=== PATIENT | male | born 1955 | race Caucasian/White ===

== ENCOUNTER 2020-08-05 08:00 | Outpatient (RCR) | payer MEDICARE, SELFPAY ==
[2020-07-08 08:10] VITALS: BP 125/94; PULSE 68
== END 2020-09-19 09:44 | disposition other institution (70) ==
LOC: HO.PT 08:00
PROVIDERS: Visit Provider Orthopaedic Surgery
DX: Z96.641 Presence of right artificial hip joint (principal)
CPT/HCPCS: 97110; 97112; 97161; 97530

== ENCOUNTER 2023-08-12 10:00 | Outpatient (RCR) | payer MEDICARE, SELFPAY | END 2023-08-12 15:58 | disposition home or self-care (01) | LOC: HO.PT 10:00 | PROVIDERS: PCP Internal Medicine; Visit Provider Physician Assistant Surgical | DX: Z96.642 Presence of left artificial hip joint (principal) | CPT/HCPCS: 97110; 97112; 97140; 97161; 97530 ==

== ENCOUNTER 2025-03-03 09:50 | Outpatient (AMB) | payer MEDICARE, SELFPAY ==
--- NOTE | 2025-03-03 09:53 | A.OFFVIS_ITS ---
Vital Signs 03/03/25 10:00 Height 5 ft 10 in Weight 200 lb BMI 28.7 Handedness Right Intake Visit Reasons: Plantar Wart Intake Note: Sanju is a 69 year old male who presents today as a new patient for a evaluation of his bilateral planter warts. Patent express that the one that is causing him discomfort on the left foot. He state that he noticed the warts about a year on his left foot and for the right it only has been a couple weeks. Allergies No Known Allergies Allergy (Verified 03/03/25 09:58) HPI HPI Plantar Wart: Details: 69-year-old male with past medical history of hyperlipidemia and hypothyroidism presents for initial evaluation of bilateral foot lesions. He describes it as painful, starting over the past few months. He went to see another provider who recommended or treatment. The patient has not tried any treatment so far. 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 PFSH Social History Alcohol intake: never Patient Tobacco Use Status: Never used Tobacco Current occupational status: retired Current occupation: right hand dominant Review of Systems Const All systems reviewed & are unremarkable except as noted in HPI and below Physical Exam Vital Signs: BMI result Body Mass Index 28.7 Extrem Other: *Bilateral Lower Extremity Focused Exam Vascular: DP/PT 2/4, CFT<3s to all digits, TG warm to cool, no pedal edema Derm: Diffuse annual scaling bilateral plantar heels and forefoot sulcus. Left medial hallux hyperkeratotic lesion. Deep core IPK lesions to the sub 3rd metatarsal region bilateral feet. Neuro: Protective sensation grossly intact to bilateral lower extremities MSK: 1st Metatarsal-phalangeal joint hallux range of motion 10 degrees bilateral feet. Moderate to high arch cavus feet deformity. Office Procedures AMB Debridement/Avulsion Podia Details: Procedure: Callus debridement Location: 2 lesions right foot, 2 lesions left foot (4 total) Anesthesia: N/A Description: The affected area was cleansed with an antiseptic solution. Using a sterile #15 blade, the hyperkeratotic tissue was radially debrided from the foot. All callused tissue was removed down to normal skin without causing bleeding or discomfort. The area was inspected for underlying ulceration or infection. Patient tolerated the procedure well. No complications noted. Tolerance: Patient tolerated procedure well, no immediate complications. 41416-Xaklfgituzr of Callus (2-4) Procedure code (CPT) selection complete Assessment & Plan Assessment & Plan (1) [place]: Code(s): L84 - Corns and callosities Category: Medical Plan: * Debrided 4 lesions total * Rx urea cream (2) Hallux rigidus of both feet: Code(s): M20.21 - Hallux rigidus, right foot; M20.22 - Hallux rigidus, left foot Category: Medical Plan: * Order bilateral x-rays (3) Tinea pedis: Code(s): B35.3 - Tinea pedis Category: Medical Qualifiers: Laterality: bilateral Qualified Code(s): B35.3 - Tinea pedis Plan: * Rx Clotrimazole Orders: Orders XR Foot [place] 3V Today M20.21 - Hallux rigidus, right foot, M20.22 - Hallux rigidus, left foot AMB Debridement/Avulsion Podiatry Today L84 - Corns and callosities Medications: New clotrimazole 1% (Athlete's Foot (clotrimazole)) Applied to both heels 1 appl topical BID 15 grams 5RF Athlete's foot 4 weeks B35.3 - Tinea pedis urea 40% Apply once to bottom of both feet daily 1 appl topical DAILY 28 grams 3RF Plantar corn and callus L84 - Corns and callosities, M20.21 - Hallux rigidus, right foot, M20.22 - Hallux rigidus, left foot Coding Level of Care Code New Pt Level 4 (03415) Diagnoses [place] L84 Hallux rigidus of both feet M20.21; M20.22 Tinea pedis of both feet B35.3 Laterality: bilateral CPT Codes Skin Debridement - CPT: 78649-Amzontgunmh of Callus (2-4) ([id number]) Time Spent (min) 35
[2025-03-03 10:00] VITALS: BMI 28.7
--- OUTSIDE RECORDS SUMMARY | 2025-03-03 11:04 | XMS_ITS | Continuity of Care Document ---
Author Organization [place] - [facility], [employer] [facility] [employer] UROLOGY Address [address] [facility] [address] [place] [address] Care Team Providers Care Biomedical Instrument Technician Name Role Phone EULALIO ANN Referring Provider IGOR GOVEA OTHER REED GILLETTE Air Quality Manager Assessment No assessment recorded. Plan of Treatment Reminders Order Date Submit Date Provider Last Modified By Organization Details Last Modified Time Details Appointments None recorded . Lab PSA, serum or plasma 025 01/20/20 [facility], [address], [place], [address], 5 10:56:58 Referral None recorded . Procedures None recorded . Surgeries None recorded . Imaging None recorded . Medication Orders None recorded . Patient TargetsNo targets recorded. Patient Instructions Encounter Date Encounter Id Patient Instructions Last Modified By Organization Details Last Modified Time 01/19/2025 [id number] prostate cancer: care instructions [email or web address] Not available 01/19/2025 11:58:10 Reason for Referral None Reported. Results Created Date Observation Date Name Description Value Unit Range Abnormal Flag Note LastModifiedBy Organization Detail LastModifiedTime 01/20/2001/19/2025 PROST ATE SPECI FIC ANTIG EN prostate specific antigen 0.10 NG/mL <4.40 The measu remen t of total PSA in conju nctio n with digit al recta l exami natio n (DERRICK) is used as an aid in the detec tion of prost ate cance r in men aged 50 years and older . Prost ate biops y is requi red for diagn osis of prost ate cance r Tumor marke r resul ts can vary due to diffe rence s in assay metho ds and reage nt speci ficit y. It is recom samson d that the clini adrienne reque st paral lel measu remen ts for monit oring of patie nts if resul ts are teste d at [facility] sites . Not Available [facility] [address], [place], [address] 01/19/2025 11:07:05 Result Notes None recorded. Problems No Known Problems Procedures Surgical History Date Name Laterality Status Provider Name and Address Organization Details Recorded Time 4 TOTAL HIP ARTHROPLASTY, ANTERIOR APPROACH (SURG) completed SANTOSH HIDALGO [address] [place], [phone], [facility] 06/10/2023 14:58:40 1 Generic Procedure Template completed Kristie Shankar NP [address] [place] [address], [phone], [facility] 03/24/2021 08:03:30 1 Generic Procedure Template completed Segundo Tavares [facility] 06/06/2020 09:28:45 0 Carpal tunnel surgery completed Sara Strange [facility] 11/20/2017 15:05:39 3 knee surgery completed Sara Strange [facility] 11/20/2017 15:05:22 Imaging Results None recorded. Procedure Notes None recorded. Medical Equipment None Reported. Allergies No known drug allergies Medications Name Sig Start Date Stop Date Status Note LastModified by Organization Details LastModified Time Colace 100 mg capsule Take 1 capsule twice a day by oral route as needed. 2023 active Not Available Not Available Not Avai lable acetaminoph en 325 mg tablet Take 3 tablets every 8 hours by oral route as needed. 2023 active Not Available Not Available Not Avai lable Protonix 40 mg tablet,asmita yed release Take 1 tablet every day by oral route as needed. 05/01 completed Not Available Not Available Not Available hydrocodone 5 mg-acetamin ophen 325 mg tablet 1 tablet as needed for postop pain Orally every 6 hrs (partial fill upon patient request) 05/01 completed Not Available Not Available Not Available meloxicam 15 mg tablet Take 1 tablet every day by oral route as needed for 30 days. 2023 active Not Available Not Available Not Avai lable Pyridium 200 mg tablet Take 1 tablet 3 times a day by oral route for 3 days. 05/01 completed Not Available Not Available Not Available amoxicillin 500 mg tablet take 4 tabs one hour prior to dental procedure 2023 active Not Available Not Available Not Avai lable Dulcolax (bisacodyl) 10 mg rectal suppository 1 supposito ry Rectal Once Take at 8 pm the night prior to surgery * 05/01 completed Not Available Not Available Not Available levothyroxi ne 100 mcg tablet 1 tablet on an empty stomach in the morning Orally Once a day active Not Available Not Available No t Available famotidine 20 mg tablet Take 1 tablet twice a day by oral route for 20 days. 2023 active Not Available Not Available Not Avai lable simvastatin 20 mg tablet Take 1 tablet every day by oral route. active Not Available Not Available No t Available aspirin 81 mg chewable tablet Chew 1 tablet twice a day by oral route as directed for 30 days. 2023 active Not Available Not Available Not Avai lable Lovenox 40 mg/0.4 mL subcutaneou s syringe as directed Subcutane ous once daily 05/01 completed Not Available Not Available Not Available oxycodone 5 mg tablet Take 1-2 tabs every 4 hours as needed for moderate to severe breakthro ugh pain 2023 active Not Available Not Available Not Avai lable Bactrim DS 800 mg-160 mg tablet one tab orally twice a day 2017 active Not Available Not Available Not Avai lable cyclobenzap rine 5 mg tablet Take 1 tablet 3 times a day by oral route as needed. 2023 active Not Available Not Available Not Avai lable Cialis 20 mg tablet 1/2 tab ( three times a week-begi n after catheter removal) Orally 05/01 completed Not Available Not Available Not Available Golytely 236 gram-22.74 gram-6.74 gram-5.86 gram oral solution Bowel prep for colonosco py. Follow instructi ons provided by GI MD office only. 2023 active Not Available Not Available Not Avai labshannon Eliquis 2.5 mg tablet Take 1 tablet twice a day by oral route for 30 days. 05/01 completed Not Available Not Available Not Available Vitals None Recorded Social History Question Answer Notes LastModified by Crambuizat [employer]DoneThis Details LastModified Time Tobacco Smoking Status Never Smoker Sara Strange [facility] 11/20/2017 15:04:19 Which Illicit Or Recreational Drugs Have You Used? Quit 25 Years Ago, No Injectables [email or web address] Information not available 11/20/2017 What Was The Date Of Your Most Recent Tobacco Screening? 11/20/2017 Information not available 10/22/2018 Sex: Unknown Functional Status Question Answer Note LastModified by Organizat [employer]DoneThis Details LastModified Time What is your level of alcohol consumption? None Quit 25 years ago [email or web address] Information not available 11/20/2017 Mental Status None recorded. Family History Relationship Description Onset Age of this Age Resolved Age Notes LastModified by Organization Details LastModified Time Father Malignant neoplasm of prostate [email or web address] Not available 2017 15:03:09 Father Malignant neoplasm of esophagus [email or web address] Not available 2017 15:03:19 Father Hypertensive disorder Not available 2017 15:03:26 Medical History Condition Response prostate cancer Y Past Encounters Encounter ID Performer Location Encounter Start Date Encounter Closed Date Diagnosis/Indication Diagnosis SNOMED-CT Code Diagnosis ICD10 Code Diagnosis IMO Codes Diagnosis Note [id number] NICOLE PALAFOX MD [facility] [facility] [address] [place] [address] 01/19/2025 11:40:22 01/19/2025 14:47:09 Malignant neoplasm of prostate [id number] [id number] The patient is a 69-year-ol d male with a history of prostate cancer, status post robotic-as sisted laparoscop ic radical prostatect magalys with bilateral pelvic lymph node dissection and nerve-spar ing technique performed on 08/14/2017 . Final surgical pathology revealed Central 3+4=7 (Grade Group 2) prostatic adenocarci noma, pathologic stage [id number], with negative surgical margins and no extracapsu lar extension. The patient presents today via Telehealth for evaluation of post-prost atectomy biochemica l recurrence , urinary stress incontinen ce and erectile dysfunctio n. His PSA on 06/26/2024 was 0.13 ng/mL, which represents a slight increase from his previously undetectab le level of <0.1 ng/mL noted on 08/18/2018 . His most recent PSA 01-19-2025 was 0.10 ng/mL. Wll trend PSA closely for biochemica l recurrence . Repeat PSA in 3 months. If it continues to rise, consider imaging (PSMA PET) Discussed with the patient biochemica l recurrence of prostate cancer is defined as a PSA > 0.2 ng/mL. Currently, he does not have evidence of BCR. We discussed another short interval PSA in three months with a telehealth visit. If that continues to trend appropriat gerald, will plan for six-month interval PSA. Plan:- Telehealth visit with repeat PSA in 3 months-- Continue follow up with Medical oncology Genuine res incontinence [id number] N39.3 [id number] He reports persistent incontinen ce requiring the use of 2 pads per day, with leakage triggered by coughing, sneezing, or certain movements. He denies urgency, frequency, dysuria, hematuria, or nocturia. Erectile d ysfunction following radical prostatectomy [id number] 47841 N52.31 [id number] Erectile dysfunctio n has persisted since surgery and is not responsive to oral PDE5 inhibitors . Health Concerns Section Related Observation LastModified by Organization Detai ls LastModified Time None Recorded Concern Status LastModified by Organization Details LastModified Time None Recorded Payers Encounter Date Sequence Insurance Name Policy Number Policy Sawant Covered Member ID Sawant Member ID Guarantor Name 01/19/2025 1 [place]UE (MEDICARE REPLACEMENT PPO) [id number] Sanju Hodges [id number] Sanju Hodges Notes Date Note Type Note Provider Name and Address Organization Details Recorded Time 01/19/2025 text/html The patient is a 69-year-old male with a history of prostate cancer, status post robotic-assisted laparoscopic radical prostatectomy with bilateral pelvic lymph node dissection and nerve-sparing technique performed on 08/14/2017. Final surgical pathology revealed Anuj 3+4=7 (Grade Group 2) prostatic adenocarcinoma, pathologic stage [id number], with negative surgical margins and no extracapsular extension.The patient presents today via Telehealth for evaluation of post-prostatectomy biochemical recurrence, urinary stress incontinence and erectile dysfunction. He reports persistent incontinence requiring the use of 2 pads per day, with leakage triggered by coughing, sneezing, or certain movements. He denies urgency, frequency, dysuria, hematuria, or nocturia. Erectile dysfunction has persisted since surgery and is not responsive to oral PDE5 inhibitors.His most recent PSA on 06/26/2024 was 0.13 ng/mL, which represents a slight increase from his previously undetectable level of <0.1 ng/mL noted on 08/18/2018. 01/19/2025: Patient returns for follow up. Hx of RALP 08/14/2017. Final surgical pathology revealed Anuj 3+4=7 (Grade Group 2) prostatic adenocarcinoma, pathologic stage [id number], with negative surgical margins and no extracapsular extension. His PSA on 06/26/2024 was 0.13 ng/mL, which represents a slight increase from his previously undetectable level of <0.1 ng/mL noted on 08/18/2018. His most recent PSA 01-19-2025 returns at 0.1 ng/mL. Patient reports incontinence and erectile function are at baseline and he does not need them further addressed at this time. NICOLE PALAFOX MD [address] [place] [address], [phone], [facility] 01/24/2025 08:29:54
--- OUTSIDE RECORDS SUMMARY | 2025-03-03 11:04 | XMS_ITS | Clinical Summary ---
Author Organization [facility] Address [address] [place] [address] Phone Care Team Providers Care Television Writer Name Role Phone Harris Riggins MD Primary Care Provider [phone] Tiffany Melara MD Unavailable Hao Lugo MD Unavailable Allergies No known active allergies Medications simvastatin (ZOCOR) 20 MG tablet Take 20 mg by mouth nightly. Active levothyroxine (SYNTHROID, LEVOTHROID) 100 MCG tablet Take 100 mcg by mouth every morning. Active therapeutic multivitamin tablet Take 1 tablet by mouth daily. Active Active Problems Problem Noted Date Diagnosed Date Status post total hip replacement, right 025 Hypothyroidism 01/19/2025 Hyperlipidemia 01/19/2025 Prostate cancer 04/24/2017 Encounters Date Type Department Care Team Description 01/19/2025 11:00 AM EDT Office Visit [facility] [place] [id number] [facility], [address] [place] [address] Tiffany Melara MD Prostate cancer (Primary Dx) from Last 3 Months Family History Medical History Relation Comments Cancer Father Crohn's disease Father Prostate cancer Father Hypertension Paternal Grandmother Relation Status Comments Father prostate and eso phageal Paternal Grandmother Social History Tobacco Use Types Packs/Day Years Used Date Smoking Tobacco: Never Smokeless Tobacco: Never Alcohol Use Standard Drinks/Week Comments No 0 (1 standard drink = 0.6 oz pure alcohol) quit heavy drinking 25 years pratima - no withdrawal problems Child or Family Care Answer Date Record ed Do you have problems with on e of the following making it difficult for you to work, study, or receive health care? No 06/19/2024 Education Answer Date Recorded Are you interested in more education? Not on lencho e 07/27/2022 Are you concerned about learning? Not on file 07/27/2022 No 07/27/2022 No 07/27/2022 Food Answer Date Recorded Within the past 6 months we worried whether our food would run out before we got money to buy more. Never True 06/19/2024 Within the past 6 months the food we bought just didn't last and we didn't have enough money to get more. Never True Residential Stability Answer Date Recor ded What is your housing situation today? I have carmen sing 06/19/2024 How many times have you move d in the past 12 months? Zero (I did not move) 06/19/2024 Paying for Meds Answer Date Recorded Do you have trouble paying for medicines? No 06/19/2024 Paying Utility Bills Answer Date Record ed Do you have trouble paying your heating or elect ricity bill? No 06/19/2024 Transportation Answer Date Recorded Has the lack of transportati on kept you from medical appointments or from getting medications? No 06/19/2024 Digital Access Answer Date Recorded No 08/25/2022 No 08/25/2022 Reliable internet access at home? Not on file 08/25/2022 Device with a working camera? Not on file Intimate Partner Violence Answer Date R ecorded Are you denied basic needs s uch as food, clothing, or medical care? No 06/21/2023 In the past 12 months have y ou been in a relationship with a person who hurts, threatens, or tries to control you? No 06/21/2023 Are you denied basic needs s uch as food, clothing, or medical care? No 06/21/2023 In the past 12 months have y ou been in a relationship with a person who hurts, threatens, or tries to control you? No 06/21/2023 Sex and Gender Information Value Date Recorded Sex Assigned at Male 06/21/2023 6:05 PM EDT Legal Sex Male 8:50 AM EST Gender Identity Male 06/21/2023 6:05 PM EDT Sexual Orientation Straight 06/09/2024 4: 52 PM EDT Last Filed Vital Signs Vital Sign Reading Time Taken Comments Blood Pressure 136/68 01/19/2025 9:55 AM EDT Pulse 48 01/19/2025 9:55 AM EDT Temperature 36.7 C (98.1 F) 01/19/2025 9:55 AM EDT Respiratory Rate 16 01/19/2025 9:55 AM EDT Oxygen Saturation 100% 01/19/2025 9:55 AM EDT Inhaled Oxygen Concentration - - Weight 82.5 kg (181 lb 14.1 oz) 01/19/2025 9:55 AM EDT Height 177 cm (5' 9.69 ) 01/19/2025 9:55 AM EDT Body Mass Index 26.33 01/19/2025 9:55 AM EDT Plan of Treatment Upcoming Encounters Date Type Department Care Team (Late st Contact Info) Description 04/20/2025 10:15 AM EST Blood Draw [facility] [place] Phlebotomy Services [address] [facility] [place] [address] Tiffany Melara MD [address] [place] [address] [email or web address] 04/20/2025 11:00 AM EST Office Visit [facility] [place] [address] [facility] [place] [address] Tiffany Melara MD [address] [place] [address] [email or web address] Ding PA-C [address] [place] [address] [email or web address] Health Maintenance Due Date Last Done Comments LIPID PANEL 1953 TSH LEVEL 1953 DEPRESSION SCREENING 1965 HEPATITIS C SCREENING 1971 COLOGUARD 1998 COLONOSCOPY 1998 COLORECTAL CANCER SCREENING 1998 FIT TEST 1998 FOBT 1998 SIGMOIDOSCOPY 1998 VIRTUAL COLONOSCOPY 1998 Adult Td,Tdap Booster 12/21/2023 12/20/2013, 011 COVID-19 VACCINE ( season) 2025 12/16/2024, 06/04/2024, 12/04/2023, Additional history exists ZOSTER VACCINES Completed 12/27/2020, 09/23/2020 RSV VACCINE Completed 11/22/2022 PNEUMOCOCCAL VACCINES (50+ years) Completed 06/04/2024 SMOKING STATUS SCREENING (Once After 26 Yrs) Completed 06/24/2024 INFLUENZA VACCINE Completed 12/16/2024, , 11/22/2022, Additional history exists HEPATITIS A VACCINES Aged Out No long er eligible based on patient's age to complete this topic HIB VACCINES Aged Out No longer eligi ble based on patient's age to complete this topic MENINGOCOCCAL VACCINES (ACWY) Aged Out No longer eligible based on patient's age to complete this topic MENINGOCOCCAL VACCINES (B) Aged Out N o longer eligible based on patient's age to complete this topic Medical Devices Not on file Procedures Procedure Name Priority Date/Time Associated Diagnosis Comments PSA DIAGNOSTIC (MONITORING) Routine 01/19/2025 9:57 AM EDT Prostate cancer from Last 3 Months Results * PSA diagnostic (monitoring) (01/19/2025 9:57 AM EDT) PSA (TOTAL AND SCREENING) 0.10 <4.40 ng/ml 01/19/2025 11:06 AM EDT [facility] Comment: The measurement of total PSA in conjunction with digital rectal examination (DERRICK) is used as an aid in the detection of prostate cancer in men aged 50 years and older. Prostate biopsy is required for diagnosis of prostate cancer Tumor marker results can vary due to differences in assay methods and reagent specificity. It is recommended that the clinician request parallel measurements for monitoring of patients if results are tested at multiple sites. 01/19/2025 9:57 AM EDT 01/19/2025 10:10 AM EDT us Sekou Almaraz PA-C LAB BLOOD BKR ORDERABLES Malissa finch Result Performing Organization Address City/State/[facility] Co de Phone Number [facility] [address] [place] [phone] from Last 3 Months Insurance [employer]AC[place] [employer] BLUE REPLACEMENT [facility] [place] MED[place]PO BLUE REPLACEMENT [place] BLUE REPLACEMENT Advance Directives For more information, please contact: [phone] (9AM - 5PM [facility], Saturday-Saturday) Documents on File Type Date Recorded Patient Vessel Manager Expl anation Healthcare Proxy 06/29/2024 10:55 AM Care Teams Television Writer Relationship Specialty Start Date End Date Harris Riggins MD [address] [place] [phone] PCP - General Internal Medicine 06/09/24 Tiffany Melara MD [address] [place] [phone] [email or web address] Primary Oncologist Medical Oncology 06/09/24 Hao Lugo MD [address] [place] [phone] Urology 09/21/24 Additional Source Comments The information contained in this document represents components of the legal health record. It is not the complete legal health record.[facility]
--- OUTSIDE RECORDS SUMMARY | 2025-03-03 11:04 | XMS_ITS | Data Portability ---
Author Organization [facility], [facility] Address [address] [place] [address] Care Team Providers Care School Leader Name Role Phone HARRIS RIGGINS Referring Provider IGOR AMIN OTHER REED GILLETTE Clerk To Justice [phone] Assessment No assessment recorded. Plan of Treatment Reminders Order Date Submit Date Provider Last Modified By Organization Details Last Modified Time Details Appointments None recorded. Lab PSA, serum or plasma 2024 025 [email or web address] [facility], [address], [address], [place], [address], 5 10:56:58 PSA, serum or plasma 2024 025 [email or web address] [facility], [address], [address], [place], [address], 5 11:49:26 CBC w/ auto diff 2023 024 SG [facility], [address], [address], [place], [address], 4 02:55:10 HbA1c (hemoglobin A1c), blood 2023 024 SG [facility], [address], [place], [address], 4 07:44:40 methicillin resistant staphylococ cus aureus, culture, nasal 2023 024 [facility], [address], [address], [place], [address], 4 09:52:20 type + screen, blood 2023 024 [email or web address], [address], [address], [place], [address], 4 09:52:19 CMP, serum or plasma 2023 024 [facility], [address], [address], [place], [address], 4 05:13:12 Referral physical therapist referral 2023 024 SG Not available 4 12:59:02 Procedures None recorded. Surgeries total hip arthroplast y, anterior approach (SURG) 2023 024 [email or web address] 0 [facility], [address] [place] [address] 9, [place], [address], 4 14:37:[address], hip, w/o contrast - JOSE Protocol 2023 024 [email or web address] Not available 4 11:16:33 Medication Orders amoxicillin 500 mg tablet 2023 024 [id number], [address] [place], [address], 4 13:15:18 Patient TargetsNo targets recorded. Patient Instructions Encounter Date Encounter Id Patient Instructions Last Modified By Organization Details Last Modified Time 09/01/2024 [id number] prostate cancer: care instructions [email or web address] Not available 09/06/2024 19:05:03 I conducted the visit using two-way, real-time telehealth audio conferencing. Visit was conducted via telehealth: Modality: Telephone conversation audio only Provider location: Clinic Patient location: Home Total visit time of 33 minutes inclusive of time spent on same-day chart review/preparatio n, post-visit care coordination, and direct patient counseling on the above listed issues. 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 Referring Physician: Anitha Fernandez, Orthopedic Surgery, Encounter Date: 06/26/2023 Results Created Date Observation Date Name Description Value Unit Range Abnormal Flag Note LastModifiedBy Organization Detail LastModifiedTime 05/03/1905/04/2023 CBC (DIFF /PLT) (REFL ) white blood cell count 7.5 thous and/u L 3.8-10 .8 normal Not Available [facility] [address], [address], 05/04/2023 02:55:10 05/03/19 24 05/04/2023 CBC (DIFF /PLT) (REFL ) red blood cell count 4.13 danette on/uL 4.20-5 .80 low Not Available [facility] [place] [facility] [address], [address], 05/04/2023 02:55:10 05/03/19 24 05/04/2023 CBC (DIFF /PLT) (REFL ) hemoglobin 12.8 g/dL 13.2-1 7.1 low Not Available [facility] [place] [facility] [address], [address], 05/04/2023 02:55:10 05/03/19 24 05/04/2023 CBC (DIFF /PLT) (REFL ) hematocrit 39.2 % 38.5-5 0.0 normal Not Available [facility] [address], [address], 05/04/2023 02:55:10 05/03/19 24 05/04/2023 CBC (DIFF /PLT) (REFL ) MCV 94.9 fL 80.0-1 00.0 normal Not Available [facility] [address], [place], [address], 05/04/2023 02:55:10 05/03/19 24 05/04/2023 CBC (DIFF /PLT) (REFL ) MCH 31.0 pg 27.0-3 3.0 normal Not Available [facility] [address], [place], [address], 05/04/2023 02:55:10 05/03/19 24 05/04/2023 CBC (DIFF /PLT) (REFL ) MCHC 32.7 g/dL 32.0-3 6.0 normal Not Available [facility] [address], [place], [address], 05/04/2023 02:55:10 05/03/19 24 05/04/2023 CBC (DIFF /PLT) (REFL ) RDW 12.5 % 11.0-1 5.0 normal Not Available [facility] [address], [place], [address], 05/04/2023 02:55:10 05/03/19 24 05/04/2023 CBC (DIFF /PLT) (REFL ) platelet count 198 thous and/u L 140-40 0 normal Not Available [address], [place], [address], 05/04/2023 02:55:10 05/03/19 24 05/04/2023 CBC (DIFF /PLT) (REFL ) MPV 12.4 fL 7.5-12 .5 normal Not Available [facility] [address], [place], [address], 05/04/2023 02:55:10 05/03/19 24 05/04/2023 CBC (DIFF /PLT) (REFL ) absolute neutrophils 4275 cells /uL 1500-7 800 normal Not Available [facility] [address], [place], [address], 05/04/2023 02:55:10 05/03/19 24 05/04/2023 CBC (DIFF /PLT) (REFL ) absolute lymphocytes 2273 cells /uL 850-39 00 normal Not Available [facility] [address], [place], [address], 05/04/2023 02:55:10 05/03/19 24 05/04/2023 CBC (DIFF /PLT) (REFL ) absolute monocytes 728 cells /uL 200-95 0 normal Not Available [facility]- [address], [place], [address], 05/04/2023 02:55:10 05/03/19 24 05/04/2023 CBC (DIFF /PLT) (REFL ) absolute eosinophils 173 cells /uL 15-500 normal Not Available [facility]- [address], [place], [address], 05/04/2023 02:55:10 05/03/19 24 05/04/2023 CBC (DIFF /PLT) (REFL ) absolute basophils 53 cells /uL 0-200 normal Not Available [facility] [address], [address], 05/04/2023 02:55:10 05/03/19 24 05/04/2023 CBC (DIFF /PLT) (REFL ) neutrophils 57 % normal Not Available [facility], [address], 05/04/2023 02:55:10 05/03/19 24 05/04/2023 CBC (DIFF /PLT) (REFL ) lymphocytes 30.3 % normal Not Available [facility] [place] [facility] [address], [place], [address], 05/04/2023 02:55:10 05/03/19 24 05/04/2023 CBC (DIFF /PLT) (REFL ) monocytes 9.7 % normal Not Available [facility] [place] [facility] [address], [place], [address], 05/04/2023 02:55:10 05/03/19 24 05/04/2023 CBC (DIFF /PLT) (REFL ) eosinophils 2.3 % normal Not Available [facility] [address], [place], [address], 05/04/2023 02:55:10 05/03/19 24 05/04/2023 CBC (DIFF /PLT) (REFL ) basophils 0.7 % normal Not Available [facility] [place] [facility] [address], [place], [address], 05/04/2023 02:55:10 05/03/19 24 05/04/2023 COMP META PNL glucose 87 mg/dL 65-139 normal Non-f astin g refer ence inter racheal Not Available [facility] [address], [place], [address], 05/04/2023 05:13:12 05/03/19 24 05/04/2023 COMP META PNL urea nitrogen (BUN) 21 mg/dL 7-25 normal Not Available [facility] [place] [facility] [address], [place], [address], 05/04/2023 05:13:12 05/03/19 24 05/04/2023 COMP META PNL creatinine 1.02 mg/dL 0.70-1 .28 normal Not Available [facility] [address], [place], [address], 05/04/2023 05:13:12 05/03/19 24 05/04/2023 COMP META PNL eGFR 79 mL/mi n/1.7 3m2 > or = 60 normal Not Available [facility] [address], [place], [address], 05/04/2023 05:13:12 05/03/19 24 05/04/2023 COMP META PNL BUN/creatini ne ratio SEE NOTE: (calc ) 6-22 normal Not Repor audra: BUN and Creat inine are withi n refer ence range . Not Available [facility] [address], [place], [address], 05/04/2023 05:13:12 05/03/19 24 05/04/2023 COMP META PNL sodium 140 mmol/ L 135-14 6 normal Not Available [facility] [address], [place], [address], 05/04/2023 05:13:12 05/03/19 24 05/04/2023 COMP META PNL potassium 4.3 mmol/ L 3.5-5. 3 normal Not Available [facility] [address], [place], [address], 05/04/2023 05:13:12 05/03/19 24 05/04/2023 COMP META PNL chloride 106 mmol/ L 98-110 normal Not Available [facility] [address], [place], [address], 05/04/2023 05:13:12 05/03/19 24 05/04/2023 COMP META PNL carbon dioxide 28 mmol/ L 20-32 normal Not Available [facility] [address], [place], [address], 05/04/2023 05:13:12 05/03/19 24 05/04/2023 COMP META PNL calcium 9.3 mg/dL 8.6-10 .3 normal Not Available [facility] [place] [facility] [address], [place], [address], 05/04/2023 05:13:12 05/03/19 24 05/04/2023 COMP META PNL protein, total 6.4 g/dL 6.1-8. 1 normal Not Available [facility] [place] [facility] [address], [place], [address], 05/04/2023 05:13:12 05/03/19 24 05/04/2023 COMP META PNL albumin 4.4 g/dL 3.6-5. 1 normal Not Available [facility] [address], [place], [address], 05/04/2023 05:13:12 05/03/19 24 05/04/2023 COMP META PNL globulin 2.0 g/dL_ (calc ) 1.9-3. 7 normal Not Available [facility] [address], [place], [address], 05/04/2023 05:13:12 05/03/19 24 05/04/2023 COMP META PNL albumin/glob ulin ratio 2.2 (calc ) 1.0-2. 5 normal Not Available [facility] [address], [place], [address], 05/04/2023 05:13:12 05/03/19 24 05/04/2023 COMP META PNL bilirubin, total 1.0 mg/dL 0.2-1. 2 normal Not Available [facility] [address], [place], [address], 05/04/2023 05:13:12 05/03/19 24 05/04/2023 COMP META PNL alkaline phosphatase 46 U/L 35-144 normal Not Available [facility] [place] [facility] [address], [place], [address], 05/04/2023 05:13:12 05/03/19 24 05/04/2023 COMP META PNL AST 22 U/L 10-35 normal Not Available [facility] [place] [facility] [address], [place], [address], 05/04/2023 05:13:12 05/03/19 24 05/04/2023 COMP META PNL ALT 25 U/L 9-46 normal Not Available [facility] [place] [facility] [address], [place], [address], 05/04/2023 05:13:12 05/03/19 24 05/04/2023 HEMOG LOBIN A1C hemoglobin A1C 5.4 %_of_ total _HGB <5.7 normal For the purpo se of screalbert adeng for the prese nce of diabe ashley: <5.7% Consi stent with the absen ce of diabe ashley 5.7-6 .4% Consi stent with incre ased risk for diabe ashley (pred iabet es) > or =6.5% Consi stent with diabe ashley This assay resul t is consi stent with a decre ased risk of diabe ashley. Curre ntly, no conse nsus exist s ector boyd use of hemog lobin A1c for diagn osis of diabe ashley in child magdi. Accor ding to Ameri can Diabe ashley Assoc iatio n (ADA) guide lines , hemog lobin A1c <7.0% repre sents optim al contr ol in non-p regna nt diabe tic patie nts. Diffe rent metri cs may apply to speci fic patie nt popul ation s. Stand ards of Medic al Care in Diabe ashley(A DA). HbA1c perfo rmed on Abbot t platf orm. Not Available [facility] [place] [facility] [address], [place], [address], 05/04/2023 07:44:39 05/03/19 24 05/05/2023 MRSA CULTU RE SCREE N source: NASAL Not Available [facility] [place] [facility] [address], [place], [address], 05/05/2023 08:54:53 05/03/19 24 05/05/2023 MRSA CULTU RE SCREE N status: FINAL Not Available [facility] [place] [facility] [address], [place], [address], 05/05/2023 08:54:53 05/03/19 24 05/05/2023 MRSA CULTU RE SCREE N culture: No methic illin resist ant Staphy lococc us aureus (MRSA) isolat ed. Not Available [facility] [place] [facility] [address], [place], [address], 05/05/2023 08:54:53 05/23/19 24 05/23/2023 TYPE AND SCREE N BBK report Run: 05/23 1412 Speci men Inqui ry ----- ----- ----- ----- ----- ----- ----- ----- ----- ----- ----- ----- ----- ----- ----- ---- Name: Demetrio Gtz Age/S ex: 68/M Locat ion: PAT.E M Acct: [id number] Unit: [id number] Statu s: PRE REF Room/ Bed: Re05/23 Disch : Att Dr: Rodger domingo MD ----- ----- ----- ----- ----- ----- ----- ----- ----- ----- ----- ----- ----- ----- ----- ---- Blood Type CHRISSY NG Ab Elizabeth n (Gel) CHRISSY NG ----- ----- ----- ----- ----- ----- ----- ----- ----- ----- ----- ----- ----- ----- ----- ---- END OF REPOR T Not Available [facility] [address] [facility] [address], [place], [address] 05/23/2023 14:12:28 05/23/19 24 05/23/2023 MARIA DEL CARMEN Fraser ABO/R H TYPE BB report Run: 05/23 1414 Speci brandi rodriguez ----- ----- ----- ----- ----- ----- ----- ----- ----- ----- ----- ----- ----- ----- ----- ---- Name: Kenan r,Demetrio Domingo Age/S ex: 68/M Locat ion: AIDAN Gonzalez Acct: [id number] Unit: [id number] Statu s: PRE REF Room/ Bed: Re05/23 Disch : [place] Dr: Rodger domingo MD ----- ----- ----- ----- ----- ----- ----- ----- ----- ----- ----- ----- ----- ----- ----- ---- CHELSIE COMBS PAT ----- ----- ----- ----- ----- ----- ----- ----- ----- ----- ----- ----- ----- ----- ----- ---- END OF REPOR T Not Available [facility] [address], [place], [address] 05/23/2023 14:14:30 05/23/19 24 05/23/2023 COMPL ETE BLOOD COUNT AUTO DIFF white blood count 6.5 X10_3 /uL 4.5-11 .0 normal Not Available [facility] [address], [place], [address] 05/23/2023 14:15:21 05/23/19 24 05/23/2023 COMPL ETE BLOOD COUNT AUTO DIFF red blood count 4.31 X10_6 /uL 4.00-5 .50 normal Not Available [facility] [address], [place], [address] 05/23/2023 14:15:21 05/23/19 24 05/23/2023 COMPL ETE BLOOD COUNT AUTO DIFF hemoglobin 13.4 g/dL 12.0-1 7.0 normal Not Available [facility] [address], [place], [address] 05/23/2023 14:15:21 05/23/19 24 05/23/2023 COMPL ETE BLOOD COUNT AUTO DIFF hematocrit 41.6 % 35.0-5 0.0 normal Not Available [facility] [address], [place], [address] 05/23/2023 14:15:21 05/23/19 24 05/23/2023 COMPL ETE BLOOD COUNT AUTO DIFF mean corpuscular volume 96.5 fL 80.0-1 00.0 normal Not Available [facility] [address], [place], [address] 05/23/2023 14:15:21 05/23/19 24 05/23/2023 COMPL ETE BLOOD COUNT AUTO DIFF mean corpuscular hemoglobin 31.1 pg 27.0-3 4.0 normal Not Available [facility] [address], [place], [address] 05/23/2023 14:15:21 05/23/19 24 05/23/2023 COMPL ETE BLOOD COUNT AUTO DIFF mean corpuscular HGB conc 32.2 g/dL 31.0-3 6.0 normal Not Available [facility] [address] [address], [place], [address] 05/23/2023 14:15:21 05/23/19 24 05/23/2023 COMPL ETE BLOOD COUNT AUTO DIFF red cell distribution width 13.7 % 11.5-1 5.0 normal Not Available [facility] [address] [address], [place], [address] 05/23/2023 14:15:21 05/23/19 24 05/23/2023 COMPL ETE BLOOD COUNT AUTO DIFF platelet count 220 X10_3 /uL 150-40 0 normal Not Available [facility] [address] [address], [place], [address] 05/23/2023 14:15:21 05/23/19 24 05/23/2023 COMPL ETE BLOOD COUNT AUTO DIFF immature granulocytes % (auto) 0.3 % Not Available [facility] [address] [address], [place], [address] 05/23/2023 14:15:21 05/23/19 24 05/23/2023 COMPL ETE BLOOD COUNT AUTO DIFF neutrophils % (auto) 41.3 % Not Available [facility] [address] [address], [place], [address] 05/23/2023 14:15:21 05/23/19 24 05/23/2023 COMPL ETE BLOOD COUNT AUTO DIFF lymphocytes % (auto) 40.6 % Not Available [facility] [address] [address], [place], [address] 05/23/2023 14:15:21 05/23/19 24 05/23/2023 COMPL ETE BLOOD COUNT AUTO DIFF monocytes % (auto) 12.1 % Not Available [facility] [address] [address], [place], [address] 05/23/2023 14:15:21 05/23/19 24 05/23/2023 COMPL ETE BLOOD COUNT AUTO DIFF eosinophils % (auto) 4.3 % Not Available [facility] [address] [address], [place], [address] 05/23/2023 14:15:21 05/23/19 24 05/23/2023 COMPL ETE BLOOD COUNT AUTO DIFF basophils % (auto) 1.4 % Not Available [facility] [address] [address], [place], [address] 05/23/2023 14:15:21 05/23/19 24 05/23/2023 COMPL ETE BLOOD COUNT AUTO DIFF immature granulocytes # (auto) 0.02 X10_3 /uL 0.00-0 .09 normal Not Available [facility] [address] [address], [place], [address] 05/23/2023 14:15:21 05/23/19 24 05/23/2023 COMPL ETE BLOOD COUNT AUTO DIFF neutrophils # (auto) 2.7 X10_3 /uL 1.5-7. 8 normal Not Available [facility] [address] [address], [place], [address] 05/23/2023 14:15:21 05/23/19 24 05/23/2023 COMPL ETE BLOOD COUNT AUTO DIFF lymphocytes # (auto) 2.6 X10_3 /uL 1.0-4. 8 normal Not Available [facility] [address] [address], [place], [address] 05/23/2023 14:15:21 05/23/19 24 05/23/2023 COMPL ETE BLOOD COUNT AUTO DIFF monocytes # (auto) 0.8 X10_3 /uL 0.0-0. 8 normal Not Available [facility] [address] [address], [place], [address] 05/23/2023 14:15:21 05/23/19 24 05/23/2023 COMPL ETE BLOOD COUNT AUTO DIFF eosinophils # (auto) 0.3 X10_3 /uL 0.0-0. 5 normal Not Available [facility] [address] [facility] [address], [place], [address] 05/23/2023 14:15:21 05/23/19 24 05/23/2023 COMPL ETE BLOOD COUNT AUTO DIFF basophils # (auto) 0.1 X10_3 /uL 0.0-0. 2 normal Not Available [facility] [address] [address], [place], [address] 05/23/2023 14:15:21 05/23/19 24 05/23/2023 COMPL ETE BLOOD COUNT AUTO DIFF nucleated RBC% 0.0 /100_ WBC 0.0-0. 0 normal Not Available [facility] [address] [facility] [address], [place], [address] 05/23/2023 14:15:21 05/23/19 24 05/23/2023 HEMOG LOBIN A1C hemoglobin A1C 5.6 4.3-5. 9 normal The Ameri can Diabe ashley Assoc iatio n recom mends the follo wing: Non-D iabet ic <5.7% Predi abete s 5.7 ? 6.4% Diabe ashley >/= 6.5% Not Available [facility] [address] [address], [place], [address] 05/23/2023 14:32:46 05/23/19 24 05/23/2023 HEMOG LOBIN A1C estimated average glucose 114 mg/dL Not Available [facility] [address] [address], [place], [address] 05/23/2023 14:32:46 05/23/19 24 05/23/2023 COMPR EHENS LOYDA METAB OLIC PANEL sodium 139 mmol/ L 137-14 6 normal Not Available [facility] [address] [address], [place], [address] 05/23/2023 14:42:02 05/23/19 24 05/23/2023 COMPR EHENS LOYDA METAB OLIC PANEL potassium,K 4.3 mmol/ L 3.5-5. 3 normal Not Available [facility] [address] [address], [place], [address] 05/23/2023 14:42:02 05/23/19 24 05/23/2023 COMPR EHENS LOYDA METAB OLIC PANEL chloride 102 mmol/ L 98-107 normal Not Available [facility] [address] [address], [place], [address] 05/23/2023 14:42:02 05/23/19 24 05/23/2023 COMPR EHENS LOYDA METAB OLIC PANEL carbon dioxide 27 mmol/ L 23-32 normal Not Available [facility] [address] [address], [place], [address] 05/23/2023 14:42:02 05/23/19 24 05/23/2023 COMPR EHENS LOYDA METAB OLIC PANEL anion gap 10 mmol/ L 5-15 normal Not Available [facility] [address] [address], [place], [address] 05/23/2023 14:42:02 05/23/19 24 05/23/2023 COMPR EHENS LOYDA METAB OLIC PANEL blood urea nitrogen 22 mg/dL 5-25 normal Not Available [facility] [address], [place], [address] 05/23/2023 14:42:02 05/23/19 24 05/23/2023 COMPR EHENS LOYDA METAB OLIC PANEL creatinine 1.1 mg/dL 0.6-1. 4 normal Not Available [facility] [address] [facility] [address], [place], [address] 05/23/2023 14:42:02 05/23/19 24 05/23/2023 COMPR EHENS LOYDA METAB OLIC PANEL estimated glomerular filt rate 72 >=90 mL/min /1.73M 2 low Repor audra eGFR is based on the CKD-E PI 2020 equat ion that does not use a race coeff blaze Luna ional infor matio n can be found at: 05-11 -8361 _icb_ egfr_ summa ry_fl yer5. pdf (kidn ey.or g) Not Available [facility] [address] [facility] [address], [place], [address] 05/23/2023 14:42:02 05/23/19 24 05/23/2023 COMPR EHENS LOYDA METAB OLIC PANEL BUN/creatini ne ratio 20.0 10.0-2 0.0 normal Not Available [facility] [address] [facility] [address], [place], [address] 05/23/2023 14:42:02 05/23/19 24 05/23/2023 COMPR EHENS LOYDA METAB OLIC PANEL glucose 97 mg/dL <100 -fasti ng normal Not Available [facility] [address] [facility] [address], [place], [address] 05/23/2023 14:42:02 05/23/19 24 05/23/2023 COMPR EHENS LOYDA METAB OLIC PANEL calcium 10.0 mg/dL 8.6-10 .3 normal Not Available [facility] [address], [place], [address] 05/23/2023 14:42:02 05/23/19 24 05/23/2023 COMPR EHENS LOYDA METAB OLIC PANEL bilirubin,to loli 0.7 mg/dL <1.2 Not Available [facility] [address] [facility] [address], [place], [address] 05/23/2023 14:42:02 05/23/19 24 05/23/2023 COMPR EHENS LOYDA METAB OLIC PANEL aspartate amino transferase 39 U/L 15-41 normal Not Available [facility] [address] [address], [place], [address] 05/23/2023 14:42:02 05/23/19 24 05/23/2023 COMPR EHENS LOYDA METAB OLIC PANEL alanine aminotransfe rase 31 U/L 14-63 normal Not Available [facility] [address] [address], [place], [address] 05/23/2023 14:42:02 05/23/19 24 05/23/2023 COMPR EHENS LOYDA METAB OLIC PANEL total protein 7.0 g/dL 6.4-8. 3 normal Not Available [facility] [address] [address], [place], [address] 05/23/2023 14:42:02 05/23/19 24 05/23/2023 COMPR EHENS LOYDA METAB OLIC PANEL albumin level 4.6 g/dL 4.0-5. 0 normal Not Available [facility] [address] [address], [place], [address] 05/23/2023 14:42:02 05/23/19 24 05/23/2023 COMPR EHENS LOYDA METAB OLIC PANEL albumin/glob ulin ratio 1.9 1.0-2. 6 normal Not Available [facility] [address] [address], [place], [address] 05/23/2023 14:42:02 05/23/19 24 05/23/2023 COMPR EHENS LOYDA METAB OLIC PANEL alkaline phosphatase 55 U/L 40-129 normal Not Available [facility] [address] [address], [place], [address] 05/23/2023 14:42:02 05/23/19 24 05/23/2023 TYPE AND SCREE N BBK report Run: 05/23 1530 Speci men Inqui ry ----- ----- ----- ----- ----- ----- ----- ----- ----- ----- ----- ----- ----- ----- ----- ---- Name: Demetrio Gtz Age/S ex: 68/M Locat ion: PAT.E M Acct: [id number] Unit: [id number] Statu s: REG REF Room/ Bed: Re05/23 Disch : Att Dr: Rodger domingo MD ----- ----- ----- ----- ----- ----- ----- ----- ----- ----- ----- ----- ----- ----- ----- ---- > Blood Type A Pos > Ab Scree n (Gel) NEGAT LOYDA ----- ----- ----- ----- ----- ----- ----- ----- ----- ----- ----- ----- ----- ----- ----- ---- END OF REPOR T Not Available [facility] [address] [facility] [address], [place], [address] 05/23/2023 15:30:24 05/23/19 24 05/24/2023 MRSA/ MSSA PRE-O P (NARE S) MRSA/mssa pre-op (nares) No Methic illin Sensit loyda or Resist ant Staph aureus isolat ed. Not Available [facility] [address] [facility] [address], [place], [address] 05/24/2023 14:39:21 06/10/19 24 06/10/2023 BLOOD BANK HOLD BB report Run: 06/09 1109 Speci men Inqui ry ----- ----- ----- ----- ----- ----- ----- ----- ----- ----- ----- ----- ----- ----- ----- ---- Name: Demetrio Gtz Age/S ex: 68/M Locat ion: SDC.D ZULLY Acct: [id number] Unit: [id number] Statu s: REG SD Room/ Bed: Re06/09 Disch : Att Dr: Rodger domingo MD ----- ----- ----- ----- ----- ----- ----- ----- ----- ----- ----- ----- ----- ----- ----- ---- 2nd Type > Blood Type A Pos ----- ----- ----- ----- ----- ----- ----- ----- ----- ----- ----- ----- ----- ----- ----- ---- END OF REPOR T Not Available [facility] [address] [place] [address], [place], [address] 06/10/2023 11:09:54 06/10/1906/10/2023 SURGI JANICE PATHO LOGY results Run: 06/12 1530 Speci rbandi Inqui ry ----- ----- ----- ----- ----- ----- ----- ----- ----- ----- ----- ----- ----- ----- ----- ---- Name: Demetrio Gtz Age/S ex: 68/M Locat ion: M7.EM Acct: [id number] Unit: [id number] Statu s: DIS INOo Room/ Bed: EM777 0-P Re06/09 Disch : 06/[address]: Rodger domingo MD ----- ----- ----- ----- ----- ----- ----- ----- ----- ----- ----- ----- ----- ----- ----- ---- Final Diagn osis Femor al head, left, 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 Bone marro w eleme nts prese nt. Tissu es A. 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 The femor al head is pale mccarthy and measu res 5.5 cm in lengt h and 5.[address] with a bailey h resec tion khanh n . The artic ular surfa ce is denud ed with areas eburn ation and khanh nal lippi ng. The c ortic al bone is pale mccarthy, focal ly hemor rhagi c, no discr ete mabel s or lesio ns seen. The port ion of femor al neck measu res 1.3 cm in lengt h and 4.[address], no discr ete mass es or lesio ns seen. The speci men is repre sente d follo wing dec as follo ws. A1, A2: Femor al head repre sente d A3: Femor al neck repre sente d SANTOSH Webb 06/11 , 8:33A M Pre-O perat loyda Diagn osis DJD Patho logy Proce dures CPT Proce dures :Deca lcifi catio n 18974 Hemat oxyli n + Eosin Stain /3 48036 Level 3 - Gross and Micro scopi c Kandace d (sign ature on file) _ Enma Malek , MD 06/12 1530 ----- ----- ----- ----- ----- ----- ----- ----- ----- ----- ----- ----- ----- ----- ----- ---- END OF REPOR T Not Available [facility] [address] [facility] [address], [place], [address] 06/13/2023 15:31:07 06/27/1906/26/2024 PROST ATE SPECI FIC ANTIG EN prostate specific antigen 0.13 NG/mL <4.40 The measu remen t of [...] resul ts are test[facility] d [facility] . Not Available [facility] [address] [facility] [address], [place], [address] 06/26/2024 13:18:38 08/28/1908/27/2024 urina lysis , dipst ick glucose neg neg to 4+ Not Available In-House Order For Francisca Provider For Internal Use Only, 08/27/2024 14:38:11 08/28/1908/27/2024 urina lysis , dipst ick bilirubin neg neg to 3+ Not Available In-House Order For Francisca Provider For Internal Use Only, 08/27/2024 14:38:11 08/28/1908/27/2024 urina lysis , dipst ick ketones neg neg to 3+ Not Available In-House Order For [place] Provider For Internal Use Only, 08/27/2024 14:38:11 08/28/19 25 08/27/2024 urina lysis , dipst ick specific gravity 1.010 1 to 1.03 Not Available In-House Order For Franc[facility]a Provider For Internal Use Only, 08/27/2024 14:38:11 08/28/19 25 08/27/2024 urina lysis , dipst ick blood neg neg to 4+ Not Available In-House Order For Franc[facility]a Provider For Internal Use Only, 08/27/2024 14:38:11 08/28/19 25 08/27/2024 urina lysis , dipst ick pH 6 5 to 9 Not Available In-House Order For [place] Provider For Internal Use Only, 08/27/2024 14:38:11 08/28/19 25 08/27/2024 urina lysis , dipst ick protein 30 neg to 4+ Not Available In-House Order For Franc[facility]a Provider For Internal Use Only, 08/27/2024 14:38:11 08/28/1908/27/2024 urina lysis , dipst ick urobilinogen norm neg to 4+ Not Available In-House Order For [place] Provider For Internal Use Only, 08/27/2024 14:38:11 08/28/1908/27/2024 urina lysis , dipst ick nitrite neg neg/po s Not Available In-House Order For [place] Provider For Internal Use Only, 08/27/2024 14:38:11 08/28/19 25 08/27/2024 urina lysis , dipst ick leukocytes neg neg to 3+ Not Available In-House Order For [place] Provider For Internal Use Only, 08/27/2024 14:38:11 08/28/19 25 08/27/2024 urina lysis , dipst ick sediment Not Available In-House Order For [place] Provider For Internal Use Only, 08/27/2024 14:38:11 09/22/19 25 09/21/2024 PROST ATE SPECI FIC ANTIG EN prostate specific antigen 0.13 NG/mL <4.40 The measu remen t of [...] if resul ts are teste [facility] at [facility] . Not Available [facility] [address] [facility] [address], [place], [address] 09/21/2024 13:23:23 11/28/19 25 12/01/2024 PSA POST PROST ATECT PSA, post prostatectom y 0.06 NG/mL normal PSA value s obtai chris with diffe rent assay metho ds or kits canno t be used inter lewis eably . This test was perfo rmed using the [facility] an Coult er DxI metho d. PSA, ICMA is not to be used as a diagn ostic proce dure witho ut confi rmati on of the diagn osis by anoth er estab lishe d produ ct or proce dure. The lower limit of accur ate quant ifica tion for this assay is 0.02 ng/mL . PSA value s less than 0.02 ng/mL canno t be accur ately measu red and will be repor audra as less than 0.02 ng/mL . Speci mens with PSA level s below the lower limit of accur ate quant ifica tion shoul d be consi dered as negat loyda. In patie nts with a negat loyda resul t for post prost atect krystal PSA, seria l monit oring of PSA level s at regul ar inter vals, along with physi janice exami natio ns and other tests , may help to detec t recur rent prost ate cance r. REFER ENCE RANGE S for PSA: <0.10 ng/mL AFTER RADIC AL PROST ATECT KRYSTAL. < OR = 4.00 ng/mL IN HEALT HY MALES WITHO UT PROST ATECT KRYSTAL. Not Available [facility] [address], [place], [address], 12/01/2024 18:34:39 01/20/20 25 01/19/2025 PROST ATE SPECI FIC ANTIG EN prostate [...] resul ts are teste d at [facility] . Not Available [facility] [address], [place], [address] 01/19/2025 11:07:05 05/03/19 24 05/03/2023 XR, hip + pelvi s, unila teral [facility] [address] [place] [address] Patien t Name: [facility] Record #: [id number] Addres s: [address] Accoun t#: [id number] City/S hernandez/Z ip: [place] [address]: Josesito Amin MD Phone: Insura nce: [place] Medica re PPO Blue /Ag e/Sex: 1955/7 0/M Self Pay Admit/ Reg Date: Orderi néstor Dr: Josesito Amin MD Locati on: [facility] EM/ PCP: Harris Riggins MD Date of Servic e: Order (s): XR hip pelvis LT min 2V CPT Code: 77324 Report Number : [id number] Reason for Exam: PAIN Pain Fronta l pelvis , fronta l shoot throug h latera l left hip compar josefa nearly 3 years prior Incomp letely examin ed right THR appara tus appear s benign . Preser jos left hip joint with narrow ing of the medial joint compar tment as previo usly. No osteoc hondra l diseas e. No margin al osteop hytosi s. Benign SI joints . Stable degene rative change s in the lower lumbar spine Impres celena: No new diseas e. Preser jos left hip joint. Dictat ed By: Kelsey gutierrez MD 940 Signed By: Sherwin Strauss MD 945 TD/TT: 940 Tech: [id number] cc: JOSÉ LUIS ; JOVITA * Josesito Amin MD; Harris Riggins MD [email or web address] [facility] [address], [place], [address] 06/10/2023 09:13:53 05/03/19 24 05/03/2023 XR, hip + pelvi s, unila teral , 2 or 3 view No observ ation record ed. [email or web address] Not Available 05/2023 10:23:49 05/03/19 24 05/01/2023 XR, hip + pelvi s, unila teral , 2 or 3 view No observ ation record ed. [email or web address] [facility] Atention: Steve [address] [facility], [place], [address], 06/10/2023 09:13:53 05/23/19 24 05/23/2023 CT, hip, w/o contr ast [facility] [address] [place] [address] Patien t Name: Glen Hodges nadya R Medica l Record #: [id number] Addres s: [address] Accoun t#: [id number] City/S hernandez/Z ip: [place] [address]: Josesito Amin MD Phone: Insura nce: [place] Medica re PPO Blue /Ag e/Sex: 1955/7 1/M Self Pay Admit/ Reg Date: Orderi néstor Dr: Josesito Amin MD Locati on: DI.CTE M/ PCP: Harris Riggins MD Date of Servic e: Order (s): CT jose hip LT wo contra st CPT Code: 34565 Report Number : [id number] Reason for Exam: OSTEOA RTHRIT IS OF LEFT HIP JOINT CT SCAN LEFT LOWER EXTREM ITY WITHOU T CONTRA ST: CLINIC AL INFORM ATION: Osteoa rthrit is of the left hip. Makopl asty. COMPAR JOSEFA: None availa ble. TECHNI QUE: On a multid etecto r CT multip le axial CT images were perfor med for bilate ral hips and knees. Mccormick l and sagitt al 2 mm reform ats of bilate ral hips were acquir ed. Automa audra exposu re contro l and iterat loyda recons tructi on techni ques were used. FINDIN GS: The left hip, the contra latera l hip and bilate ral knees were scanne d for comput er analys is. No destru ctive bone lesion or mass is identi fied. There are preser jos periar ticula r fascia l planes . There is severe osteoa rthros is of the left hip. Total right hip arthro plasty is noted. . IMPRES CELENA: Pre Makopl asty prosth esis fittin g for osteoa rthros is of the left hip. Dictat ed By: Aris Blum i, MD 1411 Signed By: Ivy Blum i, MD 141 TD/TT: 141 Tech: [id number] cc: JOSÉ LUIS ; JOVITA * Josesito Amin MD; Harris Riggins MD [email or web address] [place] [facility] [address] [facility] [address], [place], [address] 06/10/2023 09:13:54 05/23/19 24 05/23/2023 CT, hip, w/o contr ast No observ ation record ed. [email or web address] Not Available 2023 09:39:07 05/23/19 24 05/23/2023 EKG elect geo chaparro am [facility] [address] [place] [address] [phone] Patien t Name: lGen Hodges R Medica l Record #: [id number] Addres s: [address] Accoun t#: [id number] City/S [place]/Z ip: [place] [address]: Josesito Amin MD Phone: Insura nce: [place] Medica re PPO Blue /Ag e/Sex: 1955/7 0/M Self Pay Admit/ Reg Date: Orderi ng Dr: Josesito Amin MD Locati on: PAT.EM / PCP: Harris Riggins MD Date of Servic e: Order (s): EKG Electr ocardi ogram CPT Code: 08209 Report Number : [id number] Reason for Exam: pre op Sinus bradyc ardia with sinus arrhyt hmia with PVCs, HR 49 NORMAL AXIS AND INTERV ALS. Inferi or T wave abnorm ality is nonspe cific Border line LVH Compar josefa Summar y: SIGNIF ICANT RHYTHM CHANGE . Summar y: Border line ECG Compar ed with: 023 12:55 PM Dictat ed By: Debbie Sánchez MD 1307 Signed By: Kerrie Sánchez MD 1947 TD/TT: 1307 Tech: [id number] cc: JOSÉ LUIS ; JOVITA * Josesito Amin MD; Harris Riggins MD [email or web address] [facility] [address], [place], [address] 06/10/2023 09:13:54 05/23/19 24 05/23/2023 rhyth m strip , EKG* No observ ation record ed. [email or web address] [facility] Atention: Steve [address] [facility], [place], [address], 06/10/2023 09:39:19 06/10/19 24 06/10/2023 XR, hip, unila teral , [address] [facility] [address] [place] [address] Patikierra t Name: Glen [facility]ges R Medica l Record #: [id number] Addres s: [address] Accoun t#: [id number] City/S hernandez/Z ip: [place] [address]: Josesito Amin MD Phone: Insura nce: [facility] Medica re PPO Blue /Ag e/Sex: 1955/ 0/M Self Pay Admit/ Reg Date: Orderi ng Dr: Anitha gonzalezx, PAC Locati on: PACU.E M/PACU . PCP: Harris Riggins MD Date of Servic e: Order (s): XR hip LT 1V CPT Code: 52581 Report Number : [id number] Reason for Exam: s/p L TROY, in pacu Patikierra covington name: Sanju Hodges Exam: XR hip LT 1V Techni que: AP left hip 1 views Proced ure Date and Time: 024 10:11 AM Indica tion: s/p L TROY, in pacu Compar josefa: Januar y 2023 FINDIN GS/IMP RESSIO N: Status post left hip arthro plasty with satisf actory alignm ent. Dictat ed By: Nu Reyes MD 1145 Signed By: Nu Reyes MD 1151 TD/TT: 1145 Tech: [facility] 01 cc: [email or web address] ; LHELA; WERMAT * Anitha gonzalezx, PAC; Josesito Amin MD; Harris Riggins MD [email or web address] [facility] [address], [place], [address] 06/11/2023 17:38:24 06/10/19 24 06/10/2023 XR, hip + pelvi s, unila teral , 2 or 3 view No observ ation record ed. [address] Atention: Steve [address] [place], [address], 06/10/2023 12:05:24 06/10/19 24 06/10/2023 XR, hip + pelvi s, unila teral , 2 or 3 view No observ ation record ed. [address] Atention: [place] [address] [place], [address], 06/10/2023 12:14:59 06/28/19 24 06/28/2023 XR, hip + pelvi s, unila teral [facility] Medica [address] [address] Patikierra t Name: [facility] Record #: [id number] Addres s: [address] Accoun t#: [id number] City/S hernandez/Z ip: [place] [address]: Anitha maguire PAC Phone: Insura nce: [facility] Medica re PPO Blue /Ag e/Sex: 1955/7 1/M Self Pay Admit/ Reg Date: Orderi ng Dr: Anitha maguire, PAC Locati on: [facility] EM/ PCP: Harris Riggins MD Date of Servic e: Order (s): XR hip pelvis LT min 2V CPT Code: 85534 Report Number : [id number] Reason for Exam: PAIN Pain Fronta l pelvis , shoot throug h latera l left hip: Bilate ral THR appara tus in place with noncem ented femora l compon ents. Benign appear ance of fully examin ed left side Impres celena: Normal appear ance of left THR appara tus. Dictat ed By: Kelsey gutierrez MD 1622 Signed By: Sherwin Strauss MD 1627 TD/TT: 1622 Tech: MK282 cc: [email or web address] ; LHELA* Anitha maguire, PAC; Harris Riggins MD [email or web address] [place] [facility] [address], [place], [address] 07/01/2023 09:42:12 06/28/19 24 06/26/2023 XR, hip + pelvi s, unila teral , 2 or 3 view No observ ation record ed. [email or web address] [facility] Atention: Steve [address] [place], [address], 07/01/2023 09:42:12 08/22/19 24 08/22/2023 XR, hip + pelvi s, unila teral [facility] [address] [place] [address] [phone] Júnior covington Name: [facility]ica [facility] Record #: [id number] Addres s: [address] Accoun t#: [id number] City/S hernandez/[place] ip: [place] [address]: Anitha maguire PAC Phone: Insura nce: [place] Medica re PPO Blue /Ag e/Sex: 1955/7 1/M Self Pay Admit/ Reg Date: Orderi néstor Dr: Anitha maguire, PAC Locati on: [facility] EM/ PCP: Harris Riggins MD Date of Servic e: Order (s): XR hip pelvis LT min 2V CPT Code: 23569 Report Number : [id number] Reason for Exam: PAIN Pain Fronta l pelvis , shoot throug h latera l left hip compar josefa 2 months prior: Benign appear ance of bilate ral THR. No eviden ce of compli cation s. Degene rative change s in the lower lumbar spine. Preser jos alignm ent Impres celena: No new diseas e. Benign appear ance of examin ed left THR. Dictat ed By: Kelsey gutierrez MD 854 Signed By: Sherwin Strauss MD 899 TD/TT: 854 Tech: [id number] cc: JOSÉ LUIS ; ANIAELA* Anitha Blankenship eux, PAC; Harris Riggins MD [address], [place], [address] 08/23/2023 11:32:59 Result Notes Documentation Provider Name and Address Organization Details Recorded Time Xr, Hip + Pelvis, Unilateral : [facility] [address] [id number] Patient Name: Sanju Hodges Medical Record#: [id number] Address: [address] [place] [address] City/State/Zip: [place] [address]: Igor Amin MD Insurance: [place] Medicare PPO Blue /Age/Sex: 1955/68/M Self Pay Admit/Reg Date: 05/01/[address]: Igor Amin MD Location: .[facility]/ PCP: Harris Riggins MD Date of Service: 05/01/23 Order (s): XR hip pelvis LT min 2V CPT Code: 97323 Report Number: [id number] Reason for Exam: PAIN Pain Frontal pelvis, frontal shoot through lateral left hip comparison nearly 3 years prior Incompletely examined right THR apparatus appears benign. Preserved left hip joint with narrowing of the medial joint compartment as previously. No osteochondral disease. No marginal osteophytosis. Benign SI joints. Stable degenerative changes in the lower lumbar spine Impression: No new disease. Preserved left hip joint. Dictated By: Kelsey Foss MD 05/03/23940 Signed By: Kelsey Foss MD 05/03/23 0946 TD/TT: 05/03/23940 Tech: [id number] cc: JOSÉ LUIS; JOVITA* Igor Amin MD; MD DARON Segal PA [address] [place], [phone], [facility] 06/10/2023 09:13:53 Ct, Hip, W/o Contrast : [address] [address] Patient Name: Sanju Hodges Medical Record#: [id number] Address: [address] [place] [address] [place]Zip[place] [address]: Igor Amin MD Insurance: [facility] Medicare PPO Blue /Age/Sex: 1955/68/M Self Pay Admit/Reg Date: 05/23/[address]: Igor Amin MD Location: DI.CTEM/ PCP: Harris Riggins MD Date of Service: 05/23/23 Order (s): CT jose hip LT wo contrast CPT Code: 94539 Report Number: [id number] Reason for Exam: OSTEOARTHRITIS OF LEFT HIP JOINT CT SCAN LEFT LOWER EXTREMITY WITHOUT CONTRAST: CLINICAL INFORMATION: Osteoarthritis of the left hip. Makoplasty. COMPARISON: None available. TECHNIQUE: On a multidetector CT multiple axial CT images were performed for bilateral hips and knees. Coronal and sagittal 2 mm reformats of bilateral hips were acquired. Automated exposure control and iterative reconstruction techniques were used. FINDINGS: The left hip, the contralateral hip and bilateral knees were scanned for computer analysis. No destructive bone lesion or mass is identified. There are preserved periarticular fascial planes. There is severe osteoarthrosis of the left hip. Total right hip arthroplasty is noted.. IMPRESSION: Pre Makoplasty prosthesis fitting for osteoarthrosis of the left hip. Dictated By: Amalia Aviles MD 05/23/231411 Signed By: Amalia Aviles MD 05/23/23 1417 TD/TT: 05/23/23 141 Tech: [id number] cc: JOSÉ LUIS; JOVITA* Igor Amin MD; MD DARON Segal PA [address] [place] [address], [phone], [facility] 06/10/2023 09:13:54 Xr, Hip, Unilateral, 1 View : [place] [address] Patient Name: Sanju Hodges Medical Record#: [id number] Address: [address] [place] [address] City/State/Zip: [place] [address]: Igor Amin MD Insurance: [place] Medicare PPO Blue /Age/Sex: 1955/68/M Self Pay Admit/Reg Date: 06/10/[address]: Anitha Fernandez PAC Location: PACU./PACU.-08 PCP: Harris Riggins MD Date of Service: 06/10/23 Order (s): XR hip LT 1V CPT Code: 79182 Report Number: [id number] Reason for Exam: s/p L TROY, in pacu Patient name: Sanju Hodges Exam: XR hip LT 1V Technique: AP left hip 1 views Procedure Date and Time: 06/10/2023 10:11 AM Indication: s/p L TROY, in pacu Comparison: May 01, 2023 FINDINGS/IMPRESSION: Status post left hip arthroplasty with satisfactory alignment. Dictated By: Nu Reyes MD 06/10/23 1145 Signed By: Nu Reyes MD 06/10/23 1151 TD/TT: 06/10/23 1145 Tech: [id number] cc: JOSÉ LUIS; ANDRE; JOVITA* Anitha Fernandez, PAC; Igor Amin MD; MD ANITHA Segal PA [address] [place] [address], [phone], [facility] 06/11/2023 17:38:24 Xr, Hip + Pelvis, Unilateral : [facility] [place] [address] Patient Name: Sanju Hodges Medical Record#: [id number] Address: [address] [facility] City/State/Zip: [place] [address]: Anitha Fernandez PAC Insurance: [place] Medicare PPO Blue /Age/Sex: 1955/68/M Self Pay Admit/Reg Date: 06/26/[address]: Anitha Fernandez PAC Location: [facility]/ PCP: Harris Riggins MD Date of Service: 06/26/23 Order (s): XR hip pelvis LT min 2V CPT Code: 06690 Report Number: [id number] Reason for Exam: PAIN Pain Frontal pelvis, shoot through lateral left hip: Bilateral THR apparatus in place with noncemented femoral components. Benign appearance of fully examined left side Impression: Normal appearance of left THR apparatus. Dictated By: Kelsey Foss MD 06/28/231622 Signed By: Kelsey Foss MD 06/28/231627 TD/TT: 06/28/231622 Tech: [id number] cc: JOSÉ LUIS; ANDRE* Anitha Fernandez, PAC; MD DARON Segal, SANTOSH [address] [place] [address], [phone] 07/01/2023 09:42:12 Xr, Hip + Pelvis, Unilateral : [facility] [address] [address] Patient Name: Sanju Hodges Medical Record#: [id number] Address: [address] Madrig[address] [place] City/State/Zip: [place] [address]: Anitha Fernandez PAC Insurance: [place] Medicare PPO Blue /Age/Sex: 1955/68/M Self Pay Admit/Reg Date: 08/21/[address]: Anitha Fernandez PAC Location: [facility]/ PCP: Harris Riggins MD Date of Service: 08/21/23 Order (s): XR hip pelvis LT min 2V CPT Code: 23643 Report Number: [id number] Reason for Exam: PAIN Pain Frontal pelvis, shoot through lateral left hip comparison 2 months prior: Benign appearance of bilateral THR. No evidence of complications. Degenerative changes in the lower lumbar spine. Preserved alignment Impression: No new disease. Benign appearance of examined left THR. Dictated By: Kelsey Foss MD 08/22/23854 Signed By: Kelsey Foss MD 08/22/23899 TD/TT: 08/22/23854 Tech: [id number] cc: JOSÉ LUIS; ANDRE* Anitha Fernandez, PAC; MD ANITHA Segal, PA [address] [place] [address], [phone], [facility] 08/23/2023 11:32:59 Problems No Known Problems Procedures Surgical History Date Name Laterality Status Provider Name and Address Organization Details Recorded Time 4 TOTAL HIP ARTHROPLASTY, ANTERIOR APPROACH (SURG) completed SANTOSH HIDALGO [address] [place] [address], [phone], [facility] 06/10/2023 14:58:40 1 Generic Procedure Template completed Kristie Shankar NP [address] [place] [address], [phone], [facility] 03/24/2021 08:03:30 1 Generic Procedure Template completed Segundo Tavares [facility] 06/06/2020 09:28:45 0 Carpal tunnel surgery completed Sara Strange [facility] 11/20/2017 15:05:39 3 knee surgery completed Sara Strange [facility] 11/20/2017 15:05:22 Imaging Results None recorded. Procedure [...] Not Available Not Available Not Avai lable Eliquis 2.5 mg tablet Take 1 tablet twice a day by oral route for 30 days. 05/01 completed Not Available Not Available Not Available Vitals Date Recorded Body height Body mass index (BMI) Body weight Provider Name and Address Organization Details Last Updated DateTime 05/01/2023 182.88 cm 29.4 kg/m2 74126.54 g Cha Naidu [facility] 05/01/2023 09:02:05 Social History Question Answer Notes LastModified by [employer] Details LastModified Time Tobacco Smoking Status Never Smoker Sara Strange darrell [facility] 11/20/2017 15:04:19 Which Illicit Or Recreational Drugs Have You Used? Quit 25 Years Ago, No Injectables Information not available 11/20/2017 What Was The Date Of Your Most Recent Tobacco Screening? 11/20/2017 Information not available 10/22/2018 Sex: Unknown Functional Status Question Answer Note LastModified by [employer] Details LastModified Time What is your level of alcohol consumption? None Quit 25 years ago [email or web address] Information not available 11/20/2017 Mental Status None recorded. Family History Relationship Description Onset Age of this Age Resolved Age Notes LastModified by Organization Details LastModified Time Father Malignant neoplasm of prostate [email or web address] Not available 2017 15:03:09 Father Malignant neoplasm of esophagus [email or web address] Not available 2017 15:03:19 Father Hypertensive disorder [email or web address] Not available 2017 15:03:26 Medical History Condition Response prostate cancer Y Past Encounters Encounter ID Performer Location Encounter Start Date Encounter Closed Date Diagnosis/Indication Diagnosis SNOMED-CT Code Diagnosis ICD10 Code Diagnosis IMO Codes Diagnosis Note [id number] Romie Greer MD [facility] 303 - UROLOGY [address] [address] 11/22/2017 13:43:09 11/22/2017 16:16:48 History of malignant neoplasm of prostate [id number] Z85.46 I spent significan t time with the patient speaking face to face with him about his situation 3 months after robotic radical prostatect krystal. I personally reviewed all of the relevant pathology, imaging, and lab work for today's visit. His PSA is <0.1 ng/mL as of 11/14/2017, therefore he is cancer free at this time. The patient's cancer was contained per his pathology report with negative margins. His prognosis is excellent. The patient is doing very well and is feeling fine. PLAN: The patient will follow up for PSA check every 6 months. Erectile d ysfunction following radical prostatectomy [id number] 33682 N52.31 The patient rates his ability to get an erection as a 2 on a scale of 10. Presurgery erectile function was 9/10. However, he is still recovering from surgery and I did remind the patient that it can take 18-24 months for recovery. I did encourage the patient to continue the Cialis protocol as well as the use of a vacuum pump or the exploratio n of injection therapy to support the recovery of erections. Stress inc ontinence after prostatectomy [id number] N39.3 Patient regained 90 % of his continence and requires 1 pads per day. I did recommend the continuati on of Kegel exercises to support the recovery of urinary continence . I advised him to undergo pelvic floor muscle exercise to strengthen his pelvic floor muscles. Overall the patient is doing well and seems pleased with the results. PLAN: The patient will follow up for PSA check every 6 months. Thank you for including us in the care of Mr Hodges. [id number] MD [facility] [address] [place] [address] 10/28/2019 12:58:43 10/28/2019 14:24:39 Osteoarthritis of hip [id number] M16.11 [id number] MD ANGIE Oneill.[facility] - SPECIALTY [address] [place] [address] 12/01/2019 12:57:53 12/01/2019 13:24:40 Osteoarthritis of hip [id number] M16.11 [id number] IGOR AMIN MD [facility] ORTH[facility] CS OUT PT [address] [address] 05/18/2020 13:31:08 05/19/2020 13:12:49 Osteoarthritis of right hip joint [id number] 90853 M16.11 The patient presented with severe right hip pain after failing conservati ve management . Xrays were reviewed and demonstrat e complete loss of joint space, periarticu lar osteophyte s, and bone-bone disease. Patient has maximized conservati ve treatment with anti-infla mmatories, Tylenol, activity modificati on, weight modificati on, and a physician directed home exercise program for over 3 months. The patient is very frustrated with decline in function and decreased quality of life. We discussed the risks and benefits of continued nonoperati ve versus operative treatment in detail today. At this point, the patient is indicated for a right total hip arthroplas ty. Hx of prostate CA w/ TURP, denies issues w/ voiding. Plans for eliquis post op for dvt ppx. 45 minutes was spent reviewing his case, discussing treatment options, counseling , and providing care along with care coordinati on. Pain of ri ght hip joint [id number] 57334 M25.551 [id number] Garth Lozano MD [facility] [address] [place] [address], [address] [place] [address] 06/06/2020 09:20:11 06/06/2020 12:28:55 Viral screening [id number] Z11.59 [id number] SANTOSH MERCEDES [facility] ORTHOPEDI CS OUT PT [address] [address] 06/22/2020 09:59:44 06/24/2020 12:15:33 History of total replacement of right hip joint [id number] 54882 Z96.641 Two weeks status post right anterior TROY. Incision is healing well. He does have some allergy to the prior dressing and I recommende d Benadryl p.r.n. itching. Will transition outpatient physical therapy. Pain is well controlled . He will continue with DVT prophylaxi s for an additional 2 weeks. X-rays were obtained and demonstrat e stable components . We reviewed incision care, DVT prophylaxi s, returning to activity and post op recovery. All questions and concerns were answered. We will see the patient back in 8 more weeks. He will call the office with any questions or concerns. [id number] IGOR AMIN MD [facility]_HOSP ORTHOPEDI CS OUT PT [address] [address] 08/19/2020 09:45:42 08/22/2020 08:57:11 History of total replacement of right hip joint [id number] 19274 Z96.641 2.5 months status post right total hip arthroplas ty. Doing well. Working on a home exercise program continue to progress as tolerated. Follow-up any time. [id number] Kristie Shankar NP [facility] COVID-19 TESTING CLINIC 11 [facility], [address] [place] [address] 03/24/2021 07:51:34 05/05/2021 12:41:06 Viral screening [id number] Z11.59 [id number] IGOR AMIN MD [facility]_HOSP ORTHOPEDI CS OUT PT [address] [address] 05/01/2023 08:32:34 05/02/2023 11:08:05 Osteoarthritis of left hip joint [id number] 62418 M16.12 68M presented with severe left hip pain after failing conservati ve management . Xrays were reviewed and demonstrat e complete loss of joint space, periarticu lar osteophyte s, and bone-bone disease. Patient has maximized conservati ve treatment with anti-infla mmatories, Tylenol, activity modificati on, weight modificati on, and a physician directed home exercise program for over 3 months. The patient is very frustrated with decline in function and decreased quality of life. We discussed the risks and benefits of continued nonoperati ve versus operative treatment in detail. At this point, the patient is indicated for a left total hip arthroplas ty. We discussed the risks and benefits of Left total hip arthroplas ty and after questions were answered in the office to the best of my ability, informed consent was obtained. We specifical ly discussed the risks of periincisi onal and thigh numbness and risk of possible permanency . Also discussed the contralate ral pin placement for robotic arrays. Pain of le ft hip joint [id number] 41456 M25.552 [id number] SANTOSH MERCEDES [facility] ORTHOPEDI CS OUT PT [address] [address] 06/26/2023 12:15:31 06/27/2023 09:14:37 History of total replacement of left hip joint [id number] 226560 Z96.642 Orthopedic Operative NoteDate of Procedure: 06/10/23Pr e-operativ e Diagnosis: Left hip osteoarthr itisPost-o perative diagnosis: same as preoperati ve diagnosisP rocedure Performed: Left anterior total hip arthroplas ty, Jose robotic assistPrim trent Surgeon: Igor Amin Two weeks status post left anterior TROY. Patient is doing well with pain and function. We reviewed incision care, DVT prophylaxi s, physical therapy, activity and anticipate d recovery. We will follow up in another 6-8 weeks to see how he is doing. We will call with questions or concerns x-rays were obtained and demonstrat e stable Press-Fit components [id number] SANTOSH MERCEDES [facility] ORTHOPEDI CS OUT PT [address] [address] 08/21/2023 12:40:52 08/21/2023 14:31:14 History of total replacement of left hip joint [id number] 017048 Z96.642 Orthopedic Operative NoteDate of Procedure: 06/10/23Pr e-operativ e Diagnosis: Left hip osteoarthr itisPost-o perative diagnosis: same as preoperati ve diagnosisP rocedure Performed: Left anterior total hip arthroplas ty, Jose robotic assistPrim trent Surgeon: Igor Amin Two months status post left anterior TROY. Patient is doing well with pain and function. x-rays were obtained and demonstrat e stable Press-Fit components . Can transition ed to activities as tolerated. Happy to see at any point. Preventive dental procedure [id number] Z01.20 [id number] NICOLE PALAFOX MD [facility] [place] [facility] [address] - UROLOGY 11 [facility][1] [address] [place] [address] 09/01/2024 08:10:25 09/01/2024 13:33:12 Malignant neoplasm of prostate [id number] C61 36927 The patient is a 69-year-ol d male with a history of prostate cancer, status post robotic-as sisted laparoscop ic radical prostatect krystal with bilateral pelvic lymph node dissection and nerve-spar ing technique performed on 08/14/2017 . Final surgical pathology revealed Anuj 3+4=7 (Grade Group 2) prostatic adenocarci noma, pathologic stage [id number], with negative surgical margins and no extracapsu lar extension. The patient presents today via Telehealth for evaluation of post-prost atectomy biochemica l recurrence , urinary stress incontinen ce and erectile dysfunctio n. His most recent PSA on 06/26/2024 was 0.13 ng/mL, which represents a slight increase from his previously undetectab le level of <0.1 ng/mL noted on 08/18/2018 . will trend PSA closely for biochemica l recurrence . Repeat PSA in 3 months. If it continues to rise, consider imaging (PSMA PET) Plan:- Telehealth visit with repeat PSA in 3 months-- Continue follow up with Medical oncology [facility] prostate cancer [id number] 93646 C61 R97.21 [id number] His most recent PSA on 06/26/2024 was 0.13 ng/mL, which represents a slight increase from his previously undetectab le level of <0.1 ng/mL noted on 08/18/[address] ress incontinence [id number] N39.3 38140 He reports persistent incontinen ce requiring the use of 2 pads per day, with leakage triggered by coughing, sneezing, or certain movements. He denies urgency, frequency, dysuria, hematuria, or nocturia. Erectile d ysfunction following radical prostatectomy [id number] 43636 N52.31 [id number] Erectile dysfunctio n has persisted since surgery and is not responsive to oral PDE5 inhibitors . [id number] NICOLE PALAFOX MD [facility] _[address] UROLOGY 11 [facility] [address] [place] [address] 01/19/2025 11:40:22 01/19/2025 14:47:09 Malignant neoplasm of prostate [id number] C61 21266 The patient is a 69-year-ol d male with a history of prostate cancer, status post robotic-as sisted laparoscop ic radical prostatect krystal with bilateral pelvic lymph node dissection and nerve-spar ing technique performed on 08/14/2017 . Final surgical pathology revealed Anuj 3+4=7 (Grade Group 2) prostatic adenocarci noma, pathologic stage [id number], with negative surgical margins and no extracapsu [...] months-- Continue follow up with Medical oncology [facility] res incontinence [id number] N39.3 86686 He reports persistent incontinen ce requiring the use of 2 pads per day, with leakage triggered by coughing, sneezing, or certain movements. He denies urgency, frequency, dysuria, hematuria, or nocturia. Erectile d ysfunction following radical prostatectomy [id number] 12717 N52.31 [id number] Erectile dysfunctio n has persisted since surgery and is not responsive to oral PDE5 inhibitors . Health Concerns Section Related Observation LastModified by Organization Detai ls LastModified Time None Recorded Concern Status LastModified by Organization Details LastModified Time None Recorded Advance Directives Directive None Recorded Payers Insurance Date Sequence Insurance Name Policy Number Policy Sawant Covered Member ID Sawant Member ID Guarantor Name 08/27/2024 1 [facility] (O) [id number] Sanju Hodges [id number] Sanju Hodges 01/26/2025 1 [facility]: MEDICARE PPO BLUE (MEDICARE REPLACEMENT PPO) [id number] Sanju Hodges [id number] Sanju Hodges Notes Date Note Type Note Provider Name and Address Organization Details Recorded Time 05/01/2023 text/html 68-year-old male known to me with history of right total hip arthroplasty in May 2020. He is done very well from his right hip. He is now having similar symptoms in his left hip. He has been having a decrease in mobility. Having a hard time tying his shoes. Hard to walk for longer distances. He is continued to perform his home exercise program since his right hip surgery several years ago. Currently takes occasional ibuprofen for his pain. Also takes occasional Tylenol. He localizes the pain to the left groin. He is interested in left total hip arthroplasty. IGOR AMIN MD [address] [place], [phone], [facility] 05/02/2023 09:51:16 06/26/2023 text/html ROS as noted in the [facility] Orthopedic Operative NoteDate of Procedure: 06/10/23Pre-operative Diagnosis: Left hip osteoarthritisPost-oper ative diagnosis: same as preoperative diagnosisProcedure Performed: Left anterior total hip arthroplasty, Jose robotic assistPrimary Surgeon: Igor Amin Two weeks status post left anterior TROY. Doing well with pain and function. He did have an episode last week when getting into a car when he felt some pulling at the left groin. He was seen at local ER where x-rays were reported unremarkable. He has since been able to ambulate unassisted and states the swelling he initially had has been improving. Some discomfort with forward flexion but overall, reports he has been improving. No redness or drainage. Here today for postop exam with x-rays SANTOSH MERCEDES [address] [place], [address], [facility] 06/26/2023 15:03:46 08/21/2023 text/html ROS as noted in the [facility] Orthopedic Operative NoteDate of Procedure: 06/10/23Pre-operative Diagnosis: Left hip osteoarthritisPost-oper ative diagnosis: same as preoperative diagnosisProcedure Performed: Left anterior total hip arthroplasty, Jose robotic assistPrimary Surgeon: Igor Amin Two weeks status post left anterior TROY. Doing well with pain and function. He did have an episode last week when getting into a car when he felt some pulling at the left groin. He was seen at local ER where x-rays were reported unremarkable. He has since been able to ambulate unassisted and states the swelling he initially had has been improving. Some discomfort with forward flexion but overall, reports he has been improving. No redness or drainage. Here today for postop exam with x-rays 08/21/23Returns today for follow up. He was doing very well. Back to all activities. Just transitioned to outpatient PT. SANTOSH MERCEDES [address] [place] [address], [phone], [facility] 08/21/2023 13:15:35 09/01/2024 text/html The patient is a 69-year-old male with a history of prostate cancer, status post robotic-assisted laparoscopic radical prostatectomy with bilateral pelvic lymph node dissection and nerve-sparing technique performed on 08/14/2017. Final surgical pathology revealed Anuj 3+4=7 (Grade Group 2) prostatic adenocarcinoma, pathologic stage [id number], with negative surgical margins and no extracapsular extension. The patient presents today via Telehealth for evaluation of post-prostatectomy biochemical recurrence, urinary stress incontinence and erectile dysfunction. He reports persistent incontinence requiring the use of 2 pads per day, with leakage triggered by coughing, sneezing, or certain movements. He denies urgency, frequency, dysuria, hematuria, or nocturia. Erectile dysfunction has persisted since surgery and is not responsive to oral PDE5 inhibitors. His most recent PSA on 06/26/2024 was 0.13 ng/mL, which represents a slight increase from his previously undetectable level of <0.1 ng/mL noted on 08/18/2018. NICOLE PALAFOX MD [address] [place], [phone], [facility] 09/06/2024 19:05:48 01/19/2025 text/html The patient is a 69-year-old male with a history of prostate cancer, status post robotic-assisted laparoscopic radical prostatectomy with bilateral pelvic lymph node dissection and nerve-sparing technique performed on 08/14/2017. Final surgical pathology revealed [place] 3+4=7 (Grade Group 2) prostatic adenocarcinoma, pathologic stage [id number], with negative surgical margins and no extracapsular [...] (Grade Group 2) prostatic adenocarcinoma, pathologic stage [id number], with negative surgical margins and no extracapsular extension. His PSA on 06/26/2024 was 0.13 ng/mL, which represents a slight increase from his previously undetectable level of <0.1 ng/mL noted on 08/18/2018. His most recent PSA 01-19-2025 returns at 0.1 ng/mL. Patient reports incontinence and erectile function are at baseline and he does not need them further addressed at this time. NICOLE PALAFOX MD [address] [place] [address], [phone], [facility] - [facility] 01/24/2025 08:29:54
== END 2025-03-03 10:20 | disposition home or self-care (01) ==
LOC: HO.HPODS 09:51
PROVIDERS: PCP Internal Medicine; Visit Provider Student in an Organized Health Care Education/Training Program
DX: L84 Corns and callosities (principal); M20.21 Hallux rigidus, right foot; M20.22 Hallux rigidus, left foot; B35.3 Tinea pedis
CPT/HCPCS: 11056; 99204

== ENCOUNTER → 2025-03-03 09:50 | Outpatient (BNVA) | payer MEDICARE, SELFPAY | PROVIDERS: PCP Internal Medicine; Visit Provider Student in an Organized Health Care Education/Training Program | DX: M20.21 Hallux rigidus, right foot (principal); M20.22 Hallux rigidus, left foot; B35.3 Tinea pedis; L84 Corns and callosities; B07.0 Plantar wart | CPT/HCPCS: 11056; 99202 ==